=== PATIENT | male | born 1975 | race American Indian/Alaskan Native ===

== ENCOUNTER 2019-08-29 16:07 | Emergency (ER) | payer SELFPAY ==
--- NOTE | 2019-08-29 18:12 | Emergency Department Report ---
Blank Doc - Documentation Documentation: 44-year-old male that presents with heart palpations and was told by Plasma do nor he has tachycardia. Agrees to cocaine and Alcohol with last taken was 2 days. This initial assessment/diagnostic orders/clinical plan/treatment(s) is/are subject to change based on patient's health status, clinical progression and re- assessment by fellow clinical providers in the ED. Further treatment and workup at subsequent clinical providers discretion. Patient/guardians urged not to el ope from the ED as their condition may be serious if not clinically assessed and managed. Initial orders include: 1- Patient sent to [facility] for further evaluation and treatment 2- ekg 3- labs
[2019-08-29 19:55] LABS: Basophils # (Auto) 0.1 K/mm3 (0.0-0.1); Basophils % (Auto) 1.5 % (0.0-1.8); Eosinophils # (Auto) 0.6 K/mm3 (0.0-0.4); Eosinophils % (Auto) 5.9 % (0.0-4.3); Hematocrit 45.2 % (35.5-45.6); Hemoglobin 14.5 gm/dl (11.8-15.2); Lymphocytes # (Auto) 1.3 K/mm3 (1.2-5.4); Lymphocytes % (Auto) 13.5 % (13.4-35.0); Mean Corpuscular HGB Conc 32 % (32-34); Mean Corpuscular Volume 84 fl (84-94); Monocytes # (Auto) 0.9 K/mm3 (0.0-0.8); Monocytes % (Auto) 9.5 % (0.0-7.3); Platelet Count 249 K/mm3 (140-440); Red Blood Count 5.39 M/mm3 (3.65-5.03); Red Cell Distribution Width 16.2 % (13.2-15.2)
[2019-08-29 20:15] LABS: BUN/Creatinine Ratio 10; Blood Urea Nitrogen 11 mg/dL (9-20); Calcium 8.5 mg/dL (8.4-10.2); Hemolysis Index 6
--- NOTE | 2019-08-30 02:19 | Emergency Department Report ---
ED General Adult HPI - General Chief complaint: Arrhythmia/Palpitations Stated complaint: RAPID HR Time Seen by Provider: 08/29/19 18:10 Source: patient Mode of arrival: Ambulatory Limitations: No Limitations - History of Present Illness Initial comments: 44-year-old -[place] male plasma donor presents emergency department complaining of an inability to donate plasma due to having tachycardias on the last 2 attempts to come to emergency department to be evaluated. He admits to utilizing cocaine prior to attempting to donate the plasma and is unsure that played a role in his symptoms. He reports no current chest pain, no shortness of breath, no lower extremity swelling, no hemoptysis no hematemesis no hematochezia, no fever, chills, sweats no known contact with the coronavirus ED Review of Systems ROS: Stated complaint: RAPID HR Other details as noted in HPI Comment: All other systems reviewed and negative ED Past Medical Hx - Past Medical History Previous Medical History?: No - Surgical History Past Surgical History?: No - Social History Smoking Status: Current Every Day Smoker Substance Use Type: Alcohol, Cocaine, Marijuana ED Physical Exam - General Limitations: No Limitations General appearance: alert, in no apparent distress - Head Head exam: Present: atraumatic, normocephalic - Eye Eye exam: Present: normal appearance, PERRL, EOMI Pupils: Present: normal accommodation - ENT ENT exam: Present: normal exam, normal orophraynx, mucous membranes moist, TM's normal bilaterally - Neck Neck exam: Present: normal inspection - Respiratory Respiratory exam: Present: normal lung sounds bilaterally. Absent: respiratory distress - Cardiovascular Cardiovascular Exam: Present: regular rate, normal rhythm. Absent: systolic murmur, diastolic murmur, rubs, gallop - GI/Abdominal GI/Abdominal exam: Present: soft, normal bowel sounds - Rectal Rectal exam: Present: deferred - Extremities Exam Extremities exam: Present: normal inspection, normal capillary refill - Back Exam Back exam: Present: normal inspection. Absent: CVA tenderness (R), CVA tenderness (L) - Neurological Exam Neurological exam: Present: alert, oriented X3, CN II-XII intact, normal gait - Psychiatric Psychiatric exam: Present: normal affect, normal mood. Absent: anxious, flat affect, manic - Skin Skin exam: Present: warm, dry, intact, normal color. Absent: rash ED Course Vital Signs 08/29/19 16:43 Temperature 98.8 F Pulse Rate 96 H Respiratory 18 Rate Blood Pressure 114/76 O2 Sat by Pulse 98 Oximetry ED Medical Decision Making - Lab Data Result diagrams: 08/29/19 19:22 08/29/19 19:22 - EKG Data EKG shows normal: sinus rhythm Rate: normal - Medical Decision Making 44-year-old male in no acute distress to be department stable vital signs and asymptomatic current with symptoms very likely related to his illicit social history. Advised to cease utilization of cocaine. Critical care attestation.: If time is entered above; I have spent that time in minutes in the direct care of this critically ill patient, excluding procedure time. ED Disposition Clinical Impression: Cocaine abuse, Palpitations Disposition: DC-01 TO HOME OR SELFCARE Is pt being admited?: No Does the pt Need Aspirin: No Condition: Stable Instructions: Cocaine Abuse (ED), Palpitations (ED) Referrals: PRIMARY CARE, [Primary Care Provider] - 3-5 Days [facility] [Provider Group] - 3-5 Days
[2019-08-30 03:16] VITALS: BP 144/65
== END 2019-08-30 03:02 | disposition home or self-care (01) ==
LOC: ED 16:07
DX: F14.10 Cocaine abuse, uncomplicated (principal); R00.2 Palpitations; F17.200 Nicotine dependence, unspecified, uncomplicated; F12.10 Cannabis abuse, uncomplicated
CPT/HCPCS: 36415; 80048; 84443; 85025; 93005

== ENCOUNTER 2020-04-26 11:11 | Emergency (ER) | payer SELFPAY ==
--- NOTE | 2020-04-26 11:26 | Event Note ---
ED Screening Note Date of service: 04/26/20 Time: 11:26 ED Screening Note: Patient presents for meth detox today This initial assessment/diagnostic orders/clinical plan/treatment(s) is/are subject to change based on patients health status, clinical progression and re- assessment by fellow clinical providers in the ED. Further treatment and workup at subsequent clinical providers discretion. Patient/guardian urged not to elope from the ED as their condition may be serious if not clinically assessed and managed. Initial orders include: Labs Mental health eval
[2020-04-26 12:31] VITALS: BP 128/89
[2020-04-26 12:33] LABS: Basophils # (Auto) 0.2 K/mm3 (0.0-0.1); Eosinophils # (Auto) 0.5 K/mm3 (0.0-0.4); Eosinophils % (Auto) 6.8 % (0.0-4.3); Monocytes # (Auto) 0.7 K/mm3 (0.0-0.8); Monocytes % (Auto) 10.4 % (0.0-7.3)
--- NOTE | 2020-04-26 12:36 | Emergency Department Report ---
ED Psych HPI - General Chief Complaint: Alcohol Stated Complaint: DETOX Time Seen by Provider: 04/26/20 12:20 Source: patient Mode of arrival: Ambulatory - History of Present Illness Initial Comments: This is a 44-year old male that states that he he has not used drugs for 4 days. He states that he only occasionally uses alcohol. He states that he would like to go somewhere to stay for 2 to 3 days so he can rest and hopefully avoid drugs. He denies any acute hallucinosis although he states he has heard voices in the past particularly while doing drugs or shortly thereafter. He denies ever being suicidal or having command hallucinations. He does state that he has been told he has a history of paranoid schizophrenia. However he is not on any current medications and cannot identify any prior medication thereof. He states that he was admitted to [facility] about a year and a half ago apparently for an acute psychosis he states for 2 to 3 days. It does appear therefore, the patient has very unrealistic hopes for medical disposition. He is not acutely psychotic, violent, paranoid or suicidal. I have discussed his presentation with Farnaz, mental health counselor. She agrees that the patient should be referred [facility] They do have an associated lodging program that he might be eligible for. However this is not done by referral from an emergency department. He would have to go there and present for screening. Therefore we will check the labs that the patient has already had predrawn. He will be observed for some time. Is expected that he will be given outpatient referral not meeting any criteria for involuntary confinement. MD Complaint: other -: year(s) Associated Psychiatric Symptoms: none History of same: Yes Quality: intermittent Improves With: none Worsens With: none Context: recent drug abuse Associated Symptoms: denies other symptoms - Related Data Allergies Allergy/AdvReac Type Severity Reaction Status Date / Time No Known Allergies Allergy Verified 04/26/20 11:14 ED Review of Systems ROS: Stated complaint: DETOX Other details as noted in HPI Constitutional: denies: chills, fever Eyes: denies: eye pain, vision change ENT: denies: ear pain, throat pain Respiratory: denies: cough, shortness of breath Cardiovascular: denies: chest pain, palpitations Endocrine: no symptoms reported Gastrointestinal: denies: abdominal pain, nausea, diarrhea Genitourinary: denies: urgency, dysuria Musculoskeletal: denies: back pain, joint swelling, arthralgia Skin: denies: rash, lesions Neurological: denies: headache, weakness, numbness, paresthesias Psychiatric: anxiety (Perhaps). denies: depression, homicidal thoughts, suicidal thoughts Hematological/Lymphatic: denies: easy bleeding, easy bruising ED Past Medical Hx - Past Medical History Additional medical history: SHOULDER PAIN - Surgical History Additional Surgical History: LEG - Social History Smoking Status: Current Every Day Smoker Substance Use Type: Alcohol, Cocaine, Marijuana, Methamphetamines ED Physical Exam - General Limitations: No Limitations General appearance: alert, in no apparent distress - Head Head exam: Present: atraumatic, normocephalic - Eye Eye exam: Present: normal appearance. Absent: scleral icterus - ENT ENT exam: Present: mucous membranes moist - Neck Neck exam: Present: normal inspection - Respiratory Respiratory exam: Present: normal lung sounds bilaterally. Absent: respiratory distress - Cardiovascular Cardiovascular Exam: Present: normal rhythm, tachycardia (Mildly tachycardic initially not on my exam). Absent: systolic murmur, diastolic murmur, rubs, g allop - GI/Abdominal GI/Abdominal exam: Present: soft, normal bowel sounds. Absent: distended, tenderness, guarding, rebound - Rectal Rectal exam: Present: deferred - Extremities Exam Extremities exam: Present: normal inspection - Back Exam Back exam: Present: normal inspection - Neurological Exam Neurological exam: Present: alert, oriented X3, CN II-XII intact. Absent: motor sensory deficit - Psychiatric Psychiatric exam: Present: normal affect, normal mood - Skin Skin exam: Present: warm, dry, intact, normal color. Absent: rash ED Course Vital Signs 04/26/20 04/26/20 04/26/20 11:14 11:53 11:57 Temperature 98.3 F Pulse Rate 114 H Respiratory 18 18 Rate Blood Pressure 128/77 O2 Sat by Pulse 98 100 98 Oximetry 04/26/20 04/26/20 12:01 12:15 Temperature Pulse Rate 83 91 H Respiratory 17 20 Rate Blood Pressure 128/89 128/89 O2 Sat by Pulse 100 100 Oximetry - Reevaluation(s) Reevaluation #1: Patient not meeting 1013 criteria is referred for outpatient care. Discussed wi mental health counselor. Referral is populated on discharge instruction. 04/26/20 13:19 ED Medical Decision Making - Lab Data Result diagrams: 04/26/20 11:55 04/26/20 11:55 Laboratory Results - last 24 hr 04/26/20 04/26/20 04/26/20 11:55 11:55 11:55 Alcorn % (Auto) 10.4 H Eos % (Auto) 6.8 H Alcorn # (Auto) 0.7 Eos # (Auto) 0.5 H Baso # (Auto) 0.2 H Seg Neutrophils % 64.6 Seg Neutrophils # 4.3 Sodium 140 Potassium 3.9 Chloride 102.9 Carbon Dioxide 30 Anion Gap 11 BUN 13 Creatinine 1.4 H Estimated GFR > 60 BUN/Creatinine Ratio 9 Glucose 90 Calcium 9.0 Total Bilirubin 1.10 AST 25 ALT 16 Alkaline Phosphatase 107 Total Protein 6.5 Albumin 4.1 Albumin/Globulin Ratio 1.7 Acetaminophen 5.0 L Critical care attestation.: If time is entered above; I have spent that time in minutes in the direct care of this critically ill patient, excluding procedure time. ED Disposition Clinical Impression: Polysubstance abuse Disposition: DC-01 TO HOME OR SELFCARE Is pt being admited?: No Does the pt Need Aspirin: No Condition: Stable Instructions: Substance Use Disorder and Mental Illness, Methamphetamines Use Disorder, Stimulant Use Disorder-Cocaine, Finding Treatment for Addiction Additional Instructions: [facility]/Substance Abuse [facility] [address] [place] [address] Thursday thru Thursday - 8am - 5pm Call to schedule an assessment for mental health and substance abuse prog [place] Crisis Line: Suicide Prevention Line: Crisis Text Line: Text START to [phone] Emergency: 911 See above referral to the [facility]. This is nearby. We will explain to the process for outpatient management. They do have a residential treatment program that you may be eligible for. Time of Disposition: 13:20
[2020-04-26 12:54] LABS: Alanine Aminotransferase 16 units/L (7-56); Albumin 4.1 g/dL (3.9-5); BUN/Creatinine Ratio 9; Blood Urea Nitrogen 13 mg/dL (9-20); Hemolysis Index 5
[2020-04-26 13:16] LABS: Red Blood Count 4.91 M/mm3 (3.65-5.03)
[2020-04-26 13:17] LABS: Basophils % (Auto) 2.5 % (0.0-1.8); Lymphocytes # (Auto) 1.1 K/mm3 (1.2-5.4); Lymphocytes % (Auto) 16.2 % (13.4-35.0); Mean Corpuscular HGB Conc 33 % (32-34); Mean Corpuscular Volume 85 fl (84-94); Platelet Count 291 K/mm3 (140-440); Red Cell Distribution Width 15.7 % (13.2-15.2)
== END 2020-04-26 13:31 | disposition home or self-care (01) ==
LOC: ED 11:11
DX: F19.10 Other psychoactive substance abuse, uncomplicated (principal); F17.200 Nicotine dependence, unspecified, uncomplicated; F12.10 Cannabis abuse, uncomplicated
CPT/HCPCS: 36415; 80053; 80320; 85025; 99283; G0480

== ENCOUNTER 2020-12-03 02:42 | Observation (INO) | payer SELFPAY ==
[2020-12-03] MEDS ORDERED: LORazepam 2 MG/ML VIAL IV ONE (03:01)
--- NOTE | 2020-12-03 03:10 | Emergency Department Report ---
ED Psych HPI - General Chief Complaint: Psych Stated Complaint: DRUG USE Time Seen by Provider: 12/03/20 02:54 Source: patient, old records reviewed Mode of arrival: Stretcher Limitations: No Limitations - History of Present Illness Initial Comments: 45-year male with past medical history cocaine abuse presents to the hospital with complaints of paranoia after using cocaine. Patient was found in her neighborhood naked and wandering around. Heart rate 118 on initial triage. Patient denies pain, hallucinations, suicidal, or homicidal ideation. Previous medical record reviewed. History of cocaine abuse - Related Data Allergies Allergy/AdvReac Type Severity Reaction Status Date / Time No Known Allergies Allergy Verified 12/03/20 02:56 ED Review of Systems ROS: Stated complaint: DRUG USE Other details as noted in HPI Comment: All other systems reviewed and negative ED Past Medical Hx - Past Medical History Additional medical history: SHOULDER PAIN - Surgical History Additional Surgical History: LEG - Social History Smoking Status: Current Every Day Smoker Substance Use Type: Alcohol, Cocaine, Marijuana, Methamphetamines ED Physical Exam - General Limitations: No Limitations - Other Other exam information: General: No acute distress Head: Atraumatic Eyes: normal appearance ENT: Moist mucous membranes Neck: Normal appearance, no midline tenderness Chest: Clear to auscultation bilaterally CV: Tachycardic regular rate Abdomen: Soft, normal bowel sounds, nontender, nondistended, no rebound or guarding Back: Normal inspection Extremity: Normal inspection, full range of motion Neuro: Alert O x 3, no facial asymmetry, speech clear, no gross motor sensory deficit Psych: Paranoid, anxious appearing, cooperative Skin: No rash ED Course Vital Signs 12/03/20 02:56 Temperature 98.3 F Pulse Rate 118 H Respiratory 18 Rate Blood Pressure 126/89 [Left] O2 Sat by Pulse 96 Oximetry - Reevaluation(s) Reevaluation #1: 12/03/20 03:54 Initial labs reveal leukocytosis in addition to tachycardia patient meets SIRS criteria. Sepsis order set initiated ED Medical Decision Making - Lab Data Result diagrams: 12/03/20 03:03 12/03/20 03:03 Lab Results 12/03/20 12/03/20 12/03/20 Range/Units 03:03 03:03 03:03 WBC 20.9 H (4.5-11.0) K/mm3 RBC 5.49 H (3.65-5.03) M/mm3 Hgb 15.3 H (11.8-15.2) gm/dl Hct 46.3 H (35.5-45.6) % MCV 84 (84-94) fl MCH 28 (28-32) pg MCHC 33 (32-34) % RDW 15.6 H (13.2-15.2) % Plt Count 266 (140-440) K/mm3 Add Manual Diff Complete Total Counted 100 Seg Neuts % (Manual) 89.0 H (40.0-70.0) % Lymphocytes % (Manual) 10.0 L (13.4-35.0) % Monocytes % (Manual) 1.0 (0.0-7.3) % Nucleated RBC % Not Reportable Seg Neutrophils # Man 18.6 H (1.8-7.7) K/mm3 Band Neutrophils # 0.0 K/mm3 Lymphocytes # (Manual) 2.1 (1.2-5.4) K/mm3 Abs React Lymphs (Man) 0.0 K/mm3 Monocytes # (Manual) 0.2 (0.0-0.8) K/mm3 Eosinophils # (Manual) 0.0 (0.0-0.4) K/mm3 Basophils # (Manual) 0.0 (0.0-0.1) K/mm3 Metamyelocytes # 0.0 K/mm3 Myelocytes # 0.0 K/mm3 Promyelocytes # 0.0 K/mm3 Blast Cells # 0.0 K/mm3 WBC Morphology Not Reportable Hypersegmented Neuts Not Reportable Hyposegmented Neuts Not Reportable Hypogranular Neuts Not Reportable Smudge Cells Not Reportable Toxic Granulation Not Reportable Toxic Vacuolation Not Reportable Dohle Bodies Not Reportable Pelger-Huet Anomaly Not Reportable Salazar Rods Not Reportable Platelet Estimate Consistent w auto Clumped Platelets Not Reportable Plt Clumps, EDTA Not Reportable Large Platelets Not Reportable Giant Platelets Not Reportable Platelet Satelliting Not Reportable Plt Morphology Comment Not Reportable RBC Morphology Not Reportable Dimorphic RBCs Not Reportable Polychromasia Not Reportable Hypochromasia Not Reportable Poikilocytosis Not Reportable Anisocytosis Not Reportable Microcytosis Not Reportable Macrocytosis Rare Spherocytes Not Reportable Pappenheimer Bodies Not Reportable Sickle Cells Not Reportable Target Cells Not Reportable Tear Drop Cells Not Reportable Ovalocytes Not Reportable Helmet Cells Not Reportable [place] Bodies Not Reportable [place] Rings Not Reportable Kae Cells Not Reportable Bite Cells Not Reportable Crenated Cell Not Reportable Elliptocytes Not Reportable Acanthocytes (Spur) Not Reportable Rouleaux Not Reportable Hemoglobin C Crystals Not Reportable Schistocytes Not Reportable Malaria parasites Not Reportable Jovanny Bodies Not Reportable Hem Pathologist Commnt No Sodium 139 (137-145) mmol/L Potassium 4.5 (3.6-5.0) mmol/L Chloride 97.4 L (98-107) mmol/L Carbon Dioxide 20 L (22-30) mmol/L Anion Gap 26 mmol/L BUN 23 H (9-20) mg/dL Creatinine 2.1 H (0.8-1.3) mg/dL Estimated GFR 42 ml/min BUN/Creatinine Ratio 11 % Glucose 72 L (75-100) mg/dL Lactic Acid (0.7-2.0) mmol/L Calcium 9.5 (8.4-10.2) mg/dL Total Creatine Kinase 1572 H (55-170) units/L Plasma/Serum Alcohol < 0.01 (0-0.07) % 12/03/20 Range/Units 04:29 WBC (4.5-11.0) K/mm3 RBC (3.65-5.03) M/mm3 Hgb (11.8-15.2) gm/dl Hct (35.5-45.6) % MCV (84-94) fl MCH (28-32) pg MCHC (32-34) % RDW (13.2-15.2) % Plt Count (140-440) K/mm3 Add Manual Diff Total Counted Seg Neuts % (Manual) (40.0-70.0) % Lymphocytes % (Manual) (13.4-35.0) % Monocytes % (Manual) (0.0-7.3) % Nucleated RBC % Seg Neutrophils # Man (1.8-7.7) K/mm3 Band Neutrophils # K/mm3 Lymphocytes # (Manual) (1.2-5.4) K/mm3 Abs React Lymphs (Man) K/mm3 Monocytes # (Manual) (0.0-0.8) K/mm3 Eosinophils # (Manual) (0.0-0.4) K/mm3 Basophils # (Manual) (0.0-0.1) K/mm3 Metamyelocytes # K/mm3 Myelocytes # K/mm3 Promyelocytes # K/mm3 Blast Cells # K/mm3 WBC Morphology Hypersegmented Neuts Hyposegmented Neuts Hypogranular Neuts Smudge Cells Toxic Granulation Toxic Vacuolation Dohle Bodies Pelger-Huet Anomaly Salazar Rods Platelet Estimate Clumped Platelets Plt Clumps, EDTA Large Platelets Giant Platelets Platelet Satelliting Plt Morphology Comment RBC Morphology Dimorphic RBCs Polychromasia Hypochromasia Poikilocytosis Anisocytosis Microcytosis Macrocytosis Spherocytes Pappenheimer Bodies Sickle Cells Target Cells Tear Drop Cells Ovalocytes Helmet Cells [place] Bodies [place] Rings Kae Cells Bite Cells Crenated Cell Elliptocytes Acanthocytes (Spur) Rouleaux Hemoglobin C Crystals Schistocytes Malaria parasites Jovanny Bodies Hem Pathologist Commnt Sodium (137-145) mmol/L Potassium (3.6-5.0) mmol/L Chloride (98-107) mmol/L Carbon Dioxide (22-30) mmol/L Anion Gap mmol/L BUN (9-20) mg/dL Creatinine (0.8-1.3) mg/dL Estimated GFR ml/min BUN/Creatinine Ratio % Glucose (75-100) mg/dL Lactic Acid 1.00 (0.7-2.0) mmol/L Calcium (8.4-10.2) mg/dL Total Creatine Kinase (55-170) units/L Plasma/Serum Alcohol (0-0.07) % - EKG Data -: EKG Interpreted by Fl EKG shows normal: sinus rhythm, intervals (qtc 471), QRS complexes (qrsd 81), ST-T waves (no stemi) Rate: tachycardia (106) - EKG Data When compared to previous EKG there are: previous EKG unavailable - Radiology Data Radiology results: report reviewed CHEST 1 VIEW 12/03/2020 3:50 AM INDICATION / CLINICAL INFORMATION: leukocytosis. COMPARISON: None available. FINDINGS: SUPPORT DEVICES: None. HEART / MEDIASTINUM: No significant abnormality. LUNGS / PLEURA: Elevation left hemidiaphragm with mild left lower lung atelectasis. 1.1 cm nodule in the right lung No pneumothorax. ADDITIONAL FINDINGS: No significant additional findings. IMPRESSION: 1. 1.1 cm nodule in the right lung. 2. Mild left lower lung atelectasis INCIDENTAL PULMONARY NODULE RECOMMENDATION RECOMMENDATION: Solid Nodule size >8 mm -- Single - Low Risk or High Risk Patient: Consider CT at 3 months, PET/CT, or tissue sampling - Medical Decision Making 45-year-old male presents to the hospital with admitted cocaine abuse and paranoia. ED work-up revealed tachycardia, Sirs, acute renal insufficiency and elevated CK. Infectious source not identified at this time based on chest x- ray. Urine collection pending. Lactic acid normal. 30 mL/kg bolus of fluids ordered in addition to blood cultures. IV Ativan ordered. patient will be admitted to the hospital service for further work-up and treatment. Critical Care Time: No Critical care attestation.: If time is entered above; I have spent that time in minutes in the direct care of this critically ill patient, excluding procedure time. ED Disposition Clinical Impression: Cocaine abuse, Paranoia, SIRS (systemic inflammatory response syndrome), Acute renal insufficiency, Elevated CK, Pulmonary nodule Disposition: ADMITTED INPATIENT Is pt being admited?: Yes Condition: Stable Time of Disposition: 05:19 (Dr wahl/hositalist)
[2020-12-03 03:30] LABS: Hematocrit 46.3 % (35.5-45.6); Hemoglobin 15.3 gm/dl (11.8-15.2); Mean Corpuscular HGB Conc 33 % (32-34); Mean Corpuscular Volume 84 fl (84-94); Platelet Count 266 K/mm3 (140-440); Red Blood Count 5.49 M/mm3 (3.65-5.03); Red Cell Distribution Width 15.6 % (13.2-15.2)
[2020-12-03 03:49] LABS: Calcium 9.5 mg/dL (8.4-10.2)
[2020-12-03] MEDS ORDERED: SODIUM CHLORIDE 0.9% 1000 ML IV SOLN IV ONE (03:52)
[2020-12-03 04:23] LABS: Total Cells Counted 100
[2020-12-03 04:24] LABS: Macrocytosis Rare; Platelet Estimate Consistent w Auto
--- NOTE | 2020-12-03 04:37 | XRay Report ---
CHEST 1 VIEW 12/03/2020 3:50 AM INDICATION / CLINICAL INFORMATION: leukocytosis. COMPARISON: None available. FINDINGS: SUPPORT DEVICES: None. HEART / MEDIASTINUM: No significant abnormality. LUNGS / PLEURA: Elevation left hemidiaphragm with mild left lower lung atelectasis. 1.1 cm nodule in the right lung No pneumothorax. ADDITIONAL FINDINGS: No significant additional findings. IMPRESSION: 1. 1.1 cm nodule in the right lung. 2. Mild left lower lung atelectasis INCIDENTAL PULMONARY NODULE RECOMMENDATION RECOMMENDATION: Solid Nodule size >8 mm -- Single - Low Risk or High Risk Patient: Consider CT at 3 months, PET/CT, or tissue sampling Note These recommendations do not apply to lung cancer screening, patients with immunosuppression, o r patients with known primary cancer. Note Newly detected indeterminate nodule in persons 35 years of age or older. Persons under the age of 35 should not receive follow-up unless there is a known primary cancer. Note Perifissural Nodule is a fissure-attached/subpleural, homogeneous, solid nodule that has smooth margins and an oval, lentiform, or triangular shape. They represent about 20% of nodules detected in lung cancer screening, are invariably benign, and do not require follow-up. Nodules 10 mm or larger (or those with suspicious features) will continue to be managed based on the size criteria. Low Risk Patient = minimal or absent history of smoking and of other known risk factors. High Risk Patient = history of smoking or of other known risk factors. Nodule dimensions are average of long and short axes, rounded to the nearest millimeter. Based on 2017 Fleischner Society Guidelines found in Radiology 2017 284:228-243. https://doi.[email or web address] https://www.ncbi.nlm.nih.gov/pmc/articles/GQD6183070/ Signer Name: Jose Miranda MD Signed: 12/03/2020 4:33 AM Workstation Name: [id number]
[2020-12-03] MEDS ORDERED: oxyCODONE /ACETAMINOPHEN 5-325MG TAB PO PRN (06:17)
[2020-12-03] MEDS ORDERED: ONDANSETRON 4 MG/2 ML INJ IV PRN (06:17)
[2020-12-03] MEDS ORDERED: ALBUTEROL 2.5 MG/3 ML NEBU IH PRN (06:17)
[2020-12-03] MEDS ORDERED: ACETAMINOPHEN 325 MG TAB PO PRN (06:17)
[2020-12-03] MEDS ORDERED: HYDROmorphone 1 MG/1 ML INJ IV PRN (06:17)
--- NOTE | 2020-12-03 06:25 | History and Physical Report ---
History of Present Illness Date of examination: 12/03/20 Date of admission: 12/03/20 Chief complaint: Psych Paranoia Cocaine abuse History of present illness: 45-year male with past medical history cocaine abuse presents to the hospital with complaints of paranoia after using cocaine. Patient was found in her neighborhood naked and wandering around. Heart rate 118 on initial triage. Patient denies pain, hallucinations, suicidal, or homicidal ideation. Previous medical record reviewed. History of cocaine abuse In the emergency room patient is found to have WBC is 20.9, BUN 23 creatinine 2.1 and lactic acid 1.0 and CK 1572, test x-ray showed 1.1 cm nodule in the right lung, mild left lower lung atelectasis Still going to admit the patient with a diagnosis of SIRS, DAILY, rhabdomyolysis and lung nodule Med rec is not available Past History Past Medical History: other (Alcohol abuse, cocaine marijuana and meth amphetamine abuse) Medications and Allergies Allergies Allergy/AdvReac Type Severity Reaction Status Date / Time No Known Allergies Allergy Verified 12/03/20 02:56 Active Meds: Active Medications Acetaminophen (Acetaminophen 325 Mg Tab) 650 mg PO Q4H PRN PRN Reason: Pain MILD(1-3)/Fever >100.5/VINSON Albuterol (Albuterol 2.5 Mg/3 Ml Nebu) 2.5 mg IH Q4HRT PRN PRN Reason: Shortness Of Breath Albuterol/Ipratropium (Ipratropium/Albuterol Sulfate 3 Ml Ampul.Neb) 1 ampul IH Q6HRT TY Famotidine (Famotidine 20 Mg/2 Ml Inj) 20 mg IV BID TY Dextrose/Sodium Chloride (D5/0.45ns) 1,000 mls @ 100 mls/hr IV DIRECT TY Ondansetron HCl (Ondansetron 4 Mg/2 Ml Inj) 4 mg IV Q8H PRN PRN Reason: Nausea And Vomiting Oxycodone/Acetaminophen (Oxycodone /Acetaminophen 5-325mg Tab) 1 tab PO Q6H PRN PRN Reason: Pain, Moderate (4-6) Sodium Chloride (Sodium Chloride 0.9% 10 Ml Flush Syringe) 10 ml IV BID TY Sodium Chloride (Sodium Chloride 0.9% 10 Ml Flush Syringe) 10 ml IV PRN PRN PRN Reason: LINE FLUSH Review of Systems All systems: negative Psychiatric: paranoia Exam - Constitutional Vitals: Temp Pulse Resp BP Pulse Ox 98.3 F 118 H 18 126/89 96 12/03/20 02:56 12/03/20 02:56 12/03/20 02:56 12/03/20 02:56 12/03/20 02:56 General appearance: Present: no acute distress, well-nourished - EENT Eyes: Present: PERRL ENT: hearing intact, clear oral mucosa - Neck Neck: Present: supple, normal ROM - Respiratory Respiratory effort: normal Respiratory: bilateral: CTA - Cardiovascular Heart Sounds: Present: S1 & S2. Absent: rub, click - Extremities Extremities: pulses symmetrical, No edema Peripheral Pulses: within normal limits - Abdominal General gastrointestinal: Present: soft, non-tender, non-distended, normal bowel sounds Male genitourinary: Present: normal - Integumentary Integumentary: Present: clear, warm, dry - Musculoskeletal Musculoskeletal: gait normal, strength equal bilaterally - Psychiatric Psychiatric: appropriate mood/affect, intact judgment & insight - Neurologic Neurologic: CNII-XII intact, moves all extremities Results - Labs CBC & Chem 7: 12/03/20 03:03 12/03/20 03:03 Labs: Laboratory Last Values WBC 20.9 K/mm3 (4.5-11.0) H 12/03/20 03:03 RBC 5.49 M/mm3 (3.65-5.03) H 12/03/20 03:03 Hgb 15.3 gm/dl (11.8-15.2) H 12/03/20 03:03 Hct 46.3 % (35.5-45.6) H 12/03/20 03:03 MCV 84 fl (84-94) 12/03/20 03:03 MCH 28 pg (28-32) 12/03/20 03:03 MCHC 33 % (32-34) 12/03/20 03:03 RDW 15.6 % (13.2-15.2) H 12/03/20 03:03 Plt Count 266 K/mm3 (140-440) 12/03/20 03:03 Add Manual Diff Complete 12/03/20 03:03 Total Counted 100 12/03/20 03:03 Seg Neuts % (Manual) 89.0 % (40.0-70.0) H 12/03/20 03:03 Lymphocytes % (Manual) 10.0 % (13.4-35.0) L 12/03/20 03:03 Monocytes % (Manual) 1.0 % (0.0-7.3) 12/03/20 03:03 Nucleated RBC % Not Reportable 12/03/20 03:03 Seg Neutrophils # Man 18.6 K/mm3 (1.8-7.7) H 12/03/20 03:03 Band Neutrophils # 0.0 K/mm3 12/03/20 03:03 Lymphocytes # (Manual) 2.1 K/mm3 (1.2-5.4) 12/03/20 03:03 Abs React Lymphs (Man) 0.0 K/mm3 12/03/20 03:03 Monocytes # (Manual) 0.2 K/mm3 (0.0-0.8) 12/03/20 03:03 Eosinophils # (Manual) 0.0 K/mm3 (0.0-0.4) 12/03/20 03:03 Basophils # (Manual) 0.0 K/mm3 (0.0-0.1) 12/03/20 03:03 Metamyelocytes # 0.0 K/mm3 12/03/20 03:03 Myelocytes # 0.0 K/mm3 12/03/20 03:03 Promyelocytes # 0.0 K/mm3 12/03/20 03:03 Blast Cells # 0.0 K/mm3 12/03/20 03:03 WBC Morphology Not Reportable 12/03/20 03:03 Hypersegmented Neuts Not Reportable 12/03/20 03:03 Hyposegmented Neuts Not Reportable 12/03/20 03:03 Hypogranular Neuts Not Reportable 12/03/20 03:03 Smudge Cells Not Reportable 12/03/20 03:03 Toxic Granulation Not Reportable 12/03/20 03:03 Toxic Vacuolation Not Reportable 12/03/20 03:03 Dohle Bodies Not Reportable 12/03/20 03:03 Pelger-Huet Anomaly Not Reportable 12/03/20 03:03 Salazar Rods Not Reportable 12/03/20 03:03 Platelet Estimate Consistent w auto 12/03/20 03:03 Clumped Platelets Not Reportable 12/03/20 03:03 Plt Clumps, EDTA Not Reportable 12/03/20 03:03 Large Platelets Not Reportable 12/03/20 03:03 Giant Platelets Not Reportable 12/03/20 03:03 Platelet Satelliting Not Reportable 12/03/20 03:03 Plt Morphology Comment Not Reportable 12/03/20 03:03 RBC Morphology Not Reportable 12/03/20 03:03 Dimorphic RBCs Not Reportable 12/03/20 03:03 Polychromasia Not Reportable 12/03/20 03:03 Hypochromasia Not Reportable 12/03/20 03:03 Poikilocytosis Not Reportable 12/03/20 03:03 Anisocytosis Not Reportable 12/03/20 03:03 Microcytosis Not Reportable 12/03/20 03:03 Macrocytosis Rare 12/03/20 03:03 Spherocytes Not Reportable 12/03/20 03:03 Pappenheimer Bodies Not Reportable 12/03/20 03:03 Sickle Cells Not Reportable 12/03/20 03:03 Target Cells Not Reportable 12/03/20 03:03 Tear Drop Cells Not Reportable 12/03/20 03:03 Ovalocytes Not Reportable 12/03/20 03:03 Helmet Cells Not Reportable 12/03/20 03:03 Fuentes-Oxly Bodies Not Reportable 12/03/20 03:03 [place] Rings Not Reportable 12/03/20 03:03 [place] Cells Not Reportable 12/03/20 03:03 Bite Cells Not Reportable 12/03/20 03:03 Crenated Cell Not Reportable 12/03/20 03:03 Elliptocytes Not Reportable 12/03/20 03:03 Acanthocytes (Spur) Not Reportable 12/03/20 03:03 Rouleaux Not Reportable 12/03/20 03:03 Hemoglobin C Crystals Not Reportable 12/03/20 03:03 Schistocytes Not Reportable 12/03/20 03:03 Malaria parasites Not Reportable 12/03/20 03:03 Jovanny Bodies Not Reportable 12/03/20 03:03 Hem Pathologist Commnt No 12/03/20 03:03 Sodium 139 mmol/L (137-145) 12/03/20 03:03 Potassium 4.5 mmol/L (3.6-5.0) 12/03/20 03:03 Chloride 97.4 mmol/L (98-107) L 12/03/20 03:03 Carbon Dioxide 20 mmol/L (22-30) L 12/03/20 03:03 Anion Gap 26 mmol/L 12/03/20 03:03 BUN 23 mg/dL (9-20) H 12/03/20 03:03 Creatinine 2.1 mg/dL (0.8-1.3) H 12/03/20 03:03 Estimated GFR 42 ml/min 12/03/20 03:03 BUN/Creatinine Ratio 11 % 12/03/20 03:03 Glucose 72 mg/dL (75-100) L 12/03/20 03:03 Lactic Acid 1.00 mmol/L (0.7-2.0) 12/03/20 04:29 Calcium 9.5 mg/dL (8.4-10.2) 12/03/20 03:03 Total Creatine Kinase 1572 units/L (55-170) H 12/03/20 03:03 Plasma/Serum Alcohol < 0.01 % (0-0.07) 12/03/20 03:03 - Imaging and Cardiology Chest x-ray: report reviewed Assessment and Plan VTE prophylaxis?: Chemical Plan of care discussed with patient/family: Yes - Patient Problems (1) SIRS (systemic inflammatory response syndrome) Current Visit: Yes Status: Acute Plan to address problem: Admit the patient to the medical floor. D5 half-normal saline at the rate of 100 cc/h. Rocephin 2 g IV daily. Zithromax to 50 mg p.o. daily. We do the blood culture urine culture. Recheck CBC in the morning. (2) Acute renal insufficiency Current Visit: Yes Status: Acute Plan to address problem: Avoid nephrotoxic drug. D5 half-normal saline at the rate of 100 cc/h. Renally dose medication. Recheck BMP in the morning. Consult nephrology if needed (3) Cocaine abuse Current Visit: Yes Status: Acute Plan to address problem: Patient counseled regarding quit taking cocaine methamphetamine and other drugs (4) Elevated CK Current Visit: Yes Status: Acute Plan to address problem: D5 half-normal saline at the rate of 100 cc/h. Avoid nephrotoxic drug. Repeat CK in the morning (5) Paranoia Current Visit: Yes Status: Acute (6) Pulmonary nodule Current Visit: Yes Status: Acute Plan to address problem: We will do a CT scan of the chest without contrast to assess the nodule. Will consult pulmonary for evaluation (7) DVT prophylaxis Current Visit: Yes Status: Acute Plan to address problem: Heparin 5000 units subcu every 12 hours for DVT prophylaxis. Pepcid 20 mg IV every 12 hours for GI prophylaxis. Patient is a full code
--- NOTE | 2020-12-03 07:10 | Cat Scan Report ---
CT CHEST WITHOUT CONTRAST INDICATION / CLINICAL INFORMATION: Pulmonary nodule according to x-ray report. TECHNIQUE: Axial CT images were obtained through the chest without contrast. All CT scans at this location are p erformed using CT dose reduction for ALARA by means of automated exposure control. COMPARISON: Chest x-ray earlier today FINDINGS: Motion artifact throughout the examination. No focal consolidation or pleural effusion. There is a ri b abnormality. Prior injury/trauma within the right chest wall. This corresponds to area of nodularit y seen on chest x-ray. No other pulmonary nodule or mass is seen. Heart and aorta appear normal. UPPER ABDOMEN: No significant abnormality. SKELETAL SYSTEM: No significant abnormality. IMPRESSION: No pulmonary nodule is seen. Chest wall rib irregularity from prior injury corresponds to area of nod ularity on chest x-ray. Signer Name: Jose Miranda MD Signed: 12/03/2020 7:06 AM Workstation Name: [id number]
[2020-12-03] MEDS: cefTRIAXone/NS 2 GM/100 ML 2 GM/100 ML BAG IV SCH (07:39)
[2020-12-03] MEDS: D5W/0.45% NACL 1,000 ML IV SCH ×2 (07:39→22:03)
--- NOTE | 2020-12-03 09:23 | Event Note ---
Date: 12/03/20 Consult placed for pulmonary nodule based on CXR read. CT done of chest later that evening and same radiologist who read that there was an nodule on CXR then read that there is no nodule on CT. I reviewed CT, I do not see a nodule. I can see the lesion he thinks he saw on the CXR. Not sure what that is so glad CT was done but nothing in lung. Cancelling Consult.
[2020-12-03] MEDS: IPRATROPIUM/ALBUTEROL SULFATE 3 ML AMPUL.NEB IH SCH ×2 (09:30→20:05)
[2020-12-03] MEDS ORDERED: AZITHROMYCIN 250 MG TAB PO SCH (10:00)
[2020-12-03] MEDS ORDERED: FAMOTIDINE 20 MG/2 ML INJ IV SCH ×2 (10:00)
[2020-12-03 10:45] LABS: Bacteria,Urine 1+ /HPF (Negative); Bilirubin,Urine NEG (Negative); Blood,Urine NEG (Negative); Color,Urine Yellow (Yellow); Hyaline Casts,Urine 14 /LPF; Mucus,Urine FEW /HPF; Protein,Urine <15 mg/dL mg/dL (Negative); Renal Epithelial Cells,Urine <1 /LPF; Sperm,Urine FEW /HPF (NP); Urobilinogen,Urine < 2.0 mg/dL (<2.0)
[2020-12-03 10:49] LABS: Benzodiazepines Screen,Urine Negative; Methadone Screen,Urine Negative; Opiate Screen,Urine Negative
[2020-12-03 11:01] LABS: Amphetamine Screen,Urine Positive; Cannabinoid Screen,Urine Positive; Cocaine Screen,Urine Positive
[2020-12-03] MEDS: HEPARIN 5,000 UNIT/1 ML VIAL SUB-Q SCH ×2 (13:58→22:03)
--- NOTE | 2020-12-03 19:34 | Event Note ---
Date: 12/03/20 Brief progress note: 45-year male with past medical history cocaine abuse presents to the hospital with complaints of paranoia after using cocaine. Patient was found in her neighborhood naked and wandering around. Heart rate 118 on initial triage. Patient denies pain, hallucinations, suicidal, or homicidal ideation. Previous medical record reviewed. History of cocaine abuse In the emergency room patient is found to have WBC is 20.9, BUN 23 creatinine 2.1 and lactic acid 1.0 and CK 1572, test x-ray showed 1.1 cm nodule in the right lung, mild left lower lung atelectasis Admitted for possible SIRS, DAILY, rhabdomyolysis and lung nodule 1) possible SIRS Current Visit: Yes Status: Acute Plan to address problem: Admit the patient to the medical floor. D5 half-normal saline at the rate of 100 cc/h. Rocephin 2 g IV daily. Zithromax to 50 mg p.o. daily. We do the blood culture urine culture. Recheck CBC in the morning. (2) Acute renal insufficiency, creatinine 2.1 versus 1.4 in 04/2020 Current Visit: Yes Status: Acute Plan to address problem: Avoid nephrotoxic drug. D5 half-normal saline at the rate of 100 cc/h. Renally dose medication. Recheck BMP in the morning. Consult nephrology if needed (3) Cocaine abuse Current Visit: Yes Status: Acute Plan to address problem: Patient counseled regarding quit taking cocaine methamphetamine and other drugs (4) Elevated CK Current Visit: Yes Status: Acute Plan to address problem: D5 half-normal saline at the rate of 100 cc/h. Avoid nephrotoxic drug. Repeat CK in the morning (5) Paranoia likely from illicit drug use Current Visit: Yes Status: Acute (6) questionable pulmonary nodule Current Visit: Yes Status: Acute Plan to address problem: We will do a CT scan of the chest without contrast to assess the nodule. Evaluated by pulmonary consultation and he did not see any pulmonary nodules on imaging. (7) leukocytosis No evidence of sepsis. No pneumonia on chest x-ray, urinalysis of UTI, could be subjective. Blood cultures obtained. DVT prophylaxis Current Visit: Yes Status: Acute Plan to address problem: Heparin 5000 units subcu every 12 hours for DVT prophylaxis. Pepcid 20 mg IV every 12 hours for GI prophylaxis. Patient is a full code Update: Patient is sleepy but easily arousable and answers appropriately. Oriented. Afebrile and hemodynamically stable. Patient denies any symptoms including headache, nausea, chest pain, dyspnea, abdominal pain acute urinary symptoms. Denies muscle pains. Is hungry wants to eat. Will be discharged tomorrow if above mentioned issues resolve Discussed with the nursing staff in the ED
[2020-12-04 05:21] VITALS: BP 115/65
[2020-12-04 05:33] LABS: Basophils # (Auto) 0.1 K/mm3 (0.0-0.1); Basophils % (Auto) 1.5 % (0.0-1.8); Eosinophils # (Auto) 0.4 K/mm3 (0.0-0.4); Eosinophils % (Auto) 6.3 % (0.0-4.3); Lymphocytes # (Auto) 1.2 K/mm3 (1.2-5.4); Lymphocytes % (Auto) 19.9 % (13.4-35.0); Mean Corpuscular HGB Conc 33 % (32-34); Mean Corpuscular Volume 86 fl (84-94); Monocytes # (Auto) 0.6 K/mm3 (0.0-0.8); Monocytes % (Auto) 10.7 % (0.0-7.3); Platelet Count 191 K/mm3 (140-440); Red Blood Count 4.68 M/mm3 (3.65-5.03); Red Cell Distribution Width 16.2 % (13.2-15.2)
[2020-12-04 05:51] LABS: Alanine Aminotransferase 23 units/L (7-56); Albumin 3.1 g/dL (3.9-5); BUN/Creatinine Ratio 11; Blood Urea Nitrogen 13 mg/dL (9-20); Calcium 8.3 mg/dL (8.4-10.2); Hemolysis Index 2
[2020-12-04] MEDS: cefTRIAXone/NS 2 GM/100 ML 2 GM/100 ML BAG IV SCH (06:10)
[2020-12-04] MEDS: HEPARIN 5,000 UNIT/1 ML VIAL SUB-Q SCH (09:05)
--- NOTE | 2020-12-04 09:57 | Discharge Summary ---
Providers - Providers Date of Admission: 12/03/20 07:29 Date of discharge: 12/04/20 Attending physician: EDWINA FAYE Primary care physician: BUSINESS SEGMENT MANAGER Hospitalization Reason for admission: DAILY, cocaine abuse Condition: Stable Hospital course: 45-year male with past medical history cocaine abuse presents to the hospital with complaints of paranoia after using cocaine. Patient was found in her neighborhood naked and wandering around. Heart rate 118 on initial triage. Patient denied pain, hallucinations, suicidal, or homicidal ideation. Previous medical record reviewed. History of cocaine abuse In the emergency room patient is found to have WBC is 20.9, BUN 23 creatinine 2.1 and lactic acid 1.0 and CK 1572, test x-ray showed 1.1 cm nodule in the right lung, mild left lower lung atelectasis. The patient was admitted for possible SIRS, DAILY, rhabdomyolysis and lung nodule. The patient was treated with supportive care with regards to cocaine abuse. The acute kidney injury was secondary to vasomotor nephropathy/dehydration and patient received IV fluid hydration with normalization of the creatinine. CK also improved with IV fluid hydration. Watch Parts Inspector evaluated patient for possible lung nodule which was reevaluated and found to have no lesions or abnormality. Patient is back to baseline mental status and felt to receive maximal hospital benefit for discharge home. Dedicated discharge time 35 minutes Disposition: 01 HOME / SELF CARE / HOMELESS Final Discharge Diagnosis (Prints w/discharge instructions): SIRS, DAILY, vasomotor nephropathy rhabdomyolysis Core Measure Documentation - Palliative Care Palliative Care/ Comfort Measures: Not Applicable - Core Measures Any of the following diagnoses?: none Exam - Constitutional Vitals: Temp Pulse Resp BP Pulse Ox 97.8 F 77 18 115/65 99 12/04/20 05:20 12/04/20 05:20 12/04/20 05:20 12/04/20 05:20 12/04/20 09:33 General appearance: Present: no acute distress, well-nourished - EENT Eyes: Present: PERRL ENT: hearing intact, clear oral mucosa - Neck Neck: Present: supple, normal ROM - Respiratory Respiratory effort: normal Respiratory: bilateral: CTA - Cardiovascular Heart Sounds: Present: S1 & S2. Absent: rub, click - Extremities Extremities: pulses symmetrical, No edema Peripheral Pulses: within normal limits - Abdominal General gastrointestinal: Present: soft, non-tender, non-distended, normal bowel sounds Male genitourinary: Present: normal - Integumentary Integumentary: Present: clear, warm, dry - Musculoskeletal Musculoskeletal: gait normal, strength equal bilaterally - Psychiatric Psychiatric: appropriate mood/affect, intact judgment & insight - Neurologic Neurologic: CNII-XII intact, moves all extremities Plan Activity: advance as tolerated Weight Bearing Status: Weight Bear as Tolerated Diet: regular Follow up with: PRIMARY CARE, [Primary Care Provider] - 7 Days
[2020-12-04] MEDS ORDERED: AZITHROMYCIN 250 MG TAB PO SCH (10:00)
[2020-12-04] MEDS ORDERED: FAMOTIDINE 20 MG TAB PO SCH (10:00)
--- NOTE | 2020-12-04 18:56 | Electrocardiograph Report ---
[facility] Test Date: 2020-12-03 Test Time: 03:10:20 Pat Name: QI RIOS Department: Room: A377 Gender: M Digital Traffic Coordinator: ANTOINE : 1975 Requested By: UDAY CASTILLO Order Number: [id number] Reading MD: Kwabena Johnson Measurements Intervals [place] Rate: 106 P: 79 SD: 141 QRS: 73 QRSD: 81 T: 61 QT: 355 QTc: 471 Interpretive Statements Sinus tachycardia LAE, consider biatrial enlargement No previous ECG available for comparison Electronically Signed On 12-04-2020 18:55:35 EDT by Kwabena Johnson
== END 2020-12-04 12:25 | disposition home or self-care (01) ==
LOC: ED 02:42 → 3A 07:29 → INTOOBSV 07:29 → 3A 09:02
PROVIDERS: ADMIT Hospitalist; ATTEND Hospitalist
DX: N17.9 Acute kidney failure, unspecified (principal); R65.10 Systemic inflammatory response syndrome (SIRS) of non-infectious origin without acute organ dysfunction; R74.8 Abnormal levels of other serum enzymes; F14.10 Cocaine abuse, uncomplicated; D72.829 Elevated white blood cell count, unspecified; R77.8 Other specified abnormalities of plasma proteins; F22 Delusional disorders; N28.9 Disorder of kidney and ureter, unspecified; M62.82 Rhabdomyolysis; N17.0 Acute kidney failure with tubular necrosis; R91.1 Solitary pulmonary nodule; F10.129 Alcohol abuse with intoxication, unspecified; F15.10 Other stimulant abuse, uncomplicated; F17.210 Nicotine dependence, cigarettes, uncomplicated; Z79.899 Other long term (current) drug therapy; Z98.890 Other specified postprocedural states
CPT/HCPCS: 36415; 71045; 71250; 80048; 80053; 80307; 81001; 82140; 82550; 85025; 87040; 93005; 94640; 96365; 96366; 96372; 96375; 99285; G0378; J0696; J1644; J2060; 80320; 85007; G0480